=== PATIENT | female | born 1990 | race Caucasian/White ===

== ENCOUNTER 2020-01-20 12:31 | Observation (INO) | payer MEDICAID ==
[~2020-01-20] VITALS: Ht 160 cm; Wt 108.0 kg
[2020-01-20 13:45] LABS: BILIRUBIN,URINE NEGATIVE (NEGATIVE); BLOOD, URINE NEGATIVE (NEGATIVE); CLARITY/URINE SL CLOUDY (CLEAR); COLOR,URINE YELLOW (YELLOW); GLUCOSE,URINE NEGATIVE (NEGATIVE); KETONES,URINE NEGATIVE (NEGATIVE); LEUKOCYTE ESTERASE ,URINE 2+ (NEGATIVE); NITRITE, URINE NEGATIVE (NEGATIVE); PH,URINE 7.5 (5.0-8.0); PROTEIN URINE NEGATIVE (NEGATIVE); UROBILINOGEN,URINE 0.2 (0.2-1.0)
[2020-01-20 13:57] LABS: RBC,URINE 0-3 /HPF (0-3); WBC,URINE 20-50 /HPF (0-3)
[2020-01-20 13:58] LABS: BACTERIA,URINE MODERATE /HPF (None Seen); MUCUS,URINE 1+ /LPF (None Seen)
== END 2020-01-20 15:30 | disposition home or self-care (01) ==
LOC: SPU 12:31
PROVIDERS: ADMIT Obstetrics & Gynecology; ATTEND Obstetrics & Gynecology
DX: Z34.83 Encounter for supervision of other normal pregnancy, third trimester (principal); Z3A.39 39 weeks gestation of pregnancy
CPT/HCPCS: 59025; 76805; 76819; 81000; G0378

== ENCOUNTER 2020-01-26 10:40 | Inpatient (IN) | payer MEDICAID, SELFPAY ==
[~2020-01-26] VITALS: Ht 160 cm; Wt 108.0 kg
[2020-01-26 11:30] VITALS: BP_SYST 123
[2020-01-26] MEDS ORDERED: OXYTOCIN/0.9 % SODIUM CHLORIDE 1,000 ML IV SCH (11:52)
[2020-01-26] MEDS ORDERED: LR 1,000 ML IV ONE (11:52)
[2020-01-26] MEDS ORDERED: LR 1,000 ML IV SCH (11:52)
[2020-01-26] MEDS ORDERED: TERBUTALINE SULFATE 1 MG/ML VIAL SUBCUT ONE (12:00)
[2020-01-26] MEDS ORDERED: MISOPROSTOL 100 MCG TABLET (CYTOTEC) PO PRN (12:00)
[2020-01-26 12:19] LABS: BASOPHILS % (AUTO) 0.4 % (0.0-2.0); EOSINOPHILS % (AUTO) 0.4 % (0.0-4.0); HEMATOCRIT 35.4 % (36-48); HEMOGLOBIN 11.5 g/dL (12.0-16.0); LYMPHOCYTES # (AUTO) 1.2 K/uL (1.0-5.5); MEAN CORPUSCULAR HEMOGLOBIN 26 pg (27-31); MEAN CORPUSCULAR HGB CONC 33 % (32-36); MEAN CORPUSCULAR VOLUME 81 fL (79.0-98.0); MONOCYTES # (AUTO) 0.3 K/uL (0.0-1.0); MONOCYTES % (AUTO) 3.3 % (1.7-9.3); NEUTROPHILS % (AUTO) 81.9 % (40.0-70.0); PLATELET COUNT (AUTO) 224 K/uL (130-430); RED BLOOD CELL COUNT(AUTO) 4.38 MIL/uL (4.2-6.2); RED CELL DISTRIBUTION WIDTH 19.5 % (9.0-15.0); WHITE BLOOD COUNT (AUTO) 8.6 K/uL (4.8-10.8)
[2020-01-26] MEDS: MISOPROSTOL 25 MCG (0.025 MG) *QUARTER TABLET VG PRN ×2 (12:26→16:33)
[2020-01-26] MEDS ORDERED: AMPICILLIN SODIUM 2 GM in NS 100 ML IV ONE (17:15)
[2020-01-26] MEDS ORDERED: AMPICILLIN SODIUM 2 GM VIAL ONE (17:49)
[2020-01-26] MEDS ORDERED: fentaNYL CITRATE/PF 100 MCG/2 ML AMP ONE (19:54)
[2020-01-26] MEDS ORDERED: ROPIVACAINE HCL/PF 0.2% 0 ML ONE (19:54)
[2020-01-26] MEDS ORDERED: AMPICILLIN SODIUM 1 GM in NS 50 ML IV SCH (21:00)
[2020-01-26] MEDS ORDERED: OXYTOCIN/0.9 % SODIUM CHLORIDE 1,000 ML IV ONE (21:19)
[2020-01-26] MEDS ORDERED: METHYLERGONOVINE MALEATE 0.2 MG TABLET PO PRN (21:30)
[2020-01-26] MEDS ORDERED: HYDROcodone/ACETAMIN 5-325 MG TAB (NORCO/ VICODIN) PO PRN (21:30)
[2020-01-26] MEDS ORDERED: DIPH-TET-PERTUS Vaccine 0.5 ML VIAL (ADACEL) I.M. PRN (21:30)
[2020-01-26] MEDS ORDERED: DOCUSATE SODIUM 100 MG CAPSULE PO PRN (21:30)
[2020-01-26] MEDS ORDERED: ANUSOL 1 EA SUPP.RECT (PREPARATION H) RC PRN (21:30)
[2020-01-26] MEDS ORDERED: DERMOPLAST SPRAY TP PRN (21:30)
[2020-01-26] MEDS ORDERED: SENNOSIDES/DOCUSATE SODIUM 1 TAB TABLET(SENOKOT-S) PO PRN (21:30)
[2020-01-26] MEDS ORDERED: OXYCODONE/ACETAMINOPHEN 5-325 TABLET PO PRN ×2 (21:30)
[2020-01-26] MEDS ORDERED: LANOLIN 7 GM OINT. TP PRN (21:30)
[2020-01-26] MEDS ORDERED: MEASLES,MUMPS&RUBELLA VACC/PF 12500 UNIT/0.5 ML VIAL SUBQ PRN (21:30)
[2020-01-26] MEDS ORDERED: WITCH HAZEL LEAF 1 MED.PAD MED.PAD TP PRN (21:30)
[2020-01-26] MEDS ORDERED: RHO(D) IMMUNE GLOBULIN/MALTOSE 1500 UNITS/1.3 ML (WINHRO) IM PRN (21:30)
[2020-01-26] MEDS ORDERED: HYDROCORTISONE 0.5%, 28.35 GM TOPICAL CREAM TP PRN (21:30)
[2020-01-26] MEDS ORDERED: NALOXONE HCL 0.4 MG/ML AMP (NARCAN) IVP PRN (21:30)
[2020-01-26] MEDS: cephALEXin 500 MG CAPSULE PO SCH (23:33)
[2020-01-26] MEDS: IBUPROFEN 600 MG TABLET PO SCH (23:33)
[2020-01-26] MEDS ORDERED: cephALEXin 500 MG CAPSULE ONE (23:39)
[2020-01-27] MEDS: cephALEXin 500 MG CAPSULE PO SCH ×3 (05:33→19:20)
[2020-01-27] MEDS: IBUPROFEN 600 MG TABLET PO SCH ×3 (05:33→18:04)
[2020-01-27 06:22] LABS: HEMATOCRIT 28.9 % (36-48); HEMOGLOBIN 9.4 g/dL (12.0-16.0)
[2020-01-27] MEDS ORDERED: LIDOCAINE PF 1% 30ML(POUR BTL) INJ ONE (07:22)
[2020-01-29 09:09] LABS: FTA-Ab (T PALLIDUM) Non Reactive (Non Reactive)
== END 2020-01-27 22:20 | disposition home or self-care (01) | DRG 560 ==
LOC: SPU 10:40
PROVIDERS: ADMIT Obstetrics & Gynecology; ATTEND Obstetrics & Gynecology
PROC: 10E0XZZ Delivery of Products of Conception, External Approach (ICD-10-PCS; principal; 2020-01-26)
PROC: 0HQ9XZZ Repair Perineum Skin, External Approach (ICD-10-PCS; 2020-01-26)
DX: O70.0 First degree perineal laceration during delivery (principal); O69.81X0 Labor and delivery complicated by cord around neck, without compression, not applicable or unspecified; O42.92 Full-term premature rupture of membranes, unspecified as to length of time between rupture and onset of labor; Z20.828 Contact with and (suspected) exposure to other viral communicable diseases; Z3A.40 40 weeks gestation of pregnancy; Z37.0 Single live birth
CPT/HCPCS: 36415; 81002-TC; 85018-TC; 85025; 86592; 86780; 86886; 86900; 86901; J0290; J2001; J3010; J7120